=== PATIENT | female | born 1940 | race Caucasian/White ===

== ENCOUNTER → 2016-08-16 | Outpatient (CLI) | payer MEDICARE, BC ==
[~2016-08-16] MED LIST: ALPR0.25 PO; AMLO5TAB2 PO; APIX5TAB PO; ASPI-496 PO; ATEN50TA41 PO; CLON0.1T PO; CLON0.1T TD; DABI150C PO; ELAQUIS; FLEC100T PO; FURO20TA3 PO; HYDR-3343 PO; LEVO50TA5 PO; LISI-167 PO; LISI-170 PO; METO-99 PO; METO25TA35 PO; METO50TA82 PO; PROP150T2 PO; SIMV40TA3 PO; TRAZ100T15 PO
== END | disposition home or self-care (01) ==
LOC: PETCFH 08:59
PROVIDERS: ATTEND Family Medicine
DX: E04.2 Nontoxic multinodular goiter (principal)
CPT/HCPCS: 78013; A9516

== ENCOUNTER → 2019-11-21 | Outpatient (CLI) | payer MEDICARE, BC ==
[~2019-11-21] MED LIST changes: +AMLO-150 PO; -AMLO5TAB2 PO; -CLON0.1T PO; -CLON0.1T TD; +CLON0.1T22 PO; +CLON0.1T22 TD; +SIMV40TA20 PO; -SIMV40TA3 PO; +TRAZ-175 PO; -TRAZ100T15 PO
== END | disposition home or self-care (01) ==
LOC: CFH 13:31
PROVIDERS: ATTEND Internal Medicine Cardiovascular Disease
DX: I08.2 Rheumatic disorders of both aortic and tricuspid valves (principal); I10 Essential (primary) hypertension; I48.0 Paroxysmal atrial fibrillation; Z79.01 Long term (current) use of anticoagulants; Z87.891 Personal history of nicotine dependence
CPT/HCPCS: 93306